=== PATIENT | male | born 1955 | race Caucasian/White ===

== ENCOUNTER 2019-12-17 06:28 | Day surgery (SDC) | payer OTHER ==
[2019-12-16 13:05] VITALS: BMI 25.9
[2019-12-17] MEDS ORDERED: LIDOCAINE HCL/PF 2% SDV 5ML VIAL ONE (09:25)
[2019-12-17] MEDS ORDERED: fentaNYL CITRATE 250 MCG/5 ML VIAL ONE (09:25)
[2019-12-17] MEDS ORDERED: DEXAMETHASONE SOD PHOSPHATE 4 MG/1 ML VIAL ONE (09:25)
[2019-12-17] MEDS ORDERED: PROPOFOL 20 ML ONE ×2 (09:25)
[2019-12-17] MEDS ORDERED: MIDAZOLAM HCL 2 MG/2 ML SINGLE DOSE VIAL ONE (09:26)
[2019-12-17] MEDS ORDERED: ceFAZolin SODIUM 1 GM VIAL ONE (09:55)
[2019-12-17] MEDS ORDERED: ceFAZolin 2 GRAM PREMIX BAG IVPB ONE (10:01)
[2019-12-17] MEDS ORDERED: MORPHINE SULFATE 2 MG/ML VIAL IVPUSH PRN (11:24)
[2019-12-17] MEDS ORDERED: oxyCODONE HCL 5 MG TABLET PO PRN (11:24)
[2019-12-17] MEDS ORDERED: ONDANSETRON 4 MG/2 ML VIAL IVPUSH PRN (11:24)
[2019-12-17] MEDS ORDERED: ACETAMINOPHEN 500 MG TABLET (FP) PO PRN (11:24)
[2019-12-17] MEDS ORDERED: HYDROmorphone HCl 2 MG/ML VIAL IM ONE (11:36)
[2019-12-17] MEDS ORDERED: TAMSULOSIN HCL 0.4 MG CAP PO ONE (11:36)
[2019-12-17] MEDS ORDERED: ACETAMINOPHEN 325 MG TABLET (FP) PO PRN (11:36)
[2019-12-17] MEDS ORDERED: ACETAMINOPHEN INJECTION 100 ML IVPB ONE (12:56)
--- NOTE | 2019-12-17 12:56 | HP ---
DATE OF ADMISSION: 12/17/2019 Patient is a 64-year-old male with a history of prostatism including frequency, urgency, hesitancy, terminal dribbling and feelings of incomplete bladder emptying. He did have an elevated PSA of 4.5. He underwent a transrectal ultrasound as well as a biopsy. This came back as benign. He was placed on Flomax and Proscar, but his prostatism continues. His postvoid residual is greater than 150 mL. He does have history of hypertension for which he takes hydrochlorothiazide and losartan. PHYSICAL EXAMINATION: General: A well-developed adult male. Abdomen: Soft. Genitourinary: Genitalia are atraumatic. Testes are normal in size and consistency. Rectal: His prostate is 3+, smooth, benign, not tender. Extremities: Full range of motion with no cyanosis, clubbing or edema. IMPRESSION AT PRESENT: Benign prostatic hypertrophy with severe prostatism syndromes. PLAN: Undergo a TURP. This was explained to the patient and he agrees. Jean Marie [id number]
[2019-12-17] MEDS: CEPHALEXIN MONOHYDRATE 500 MG CAPSULE (UD) PO SCH ×2 (13:53→21:20)
--- NOTE | 2019-12-17 15:36 | PN ---
Progress Note (short form) - Note Progress Note: UROLOGY NOTE. POD#1 S/P TURP/TUVP. +95FOLEY WITH CBI IS PATENT,URINE IS BLOOD TINGED, NO CLOTS, ABD. -SOFT, N/T, BS++. PLAN- DC CBI AND ATTACH CORREIA TO LEG BAG, WILL F/U PT. IN OFFICE ON SUNDAY
[2019-12-18] MEDS: CEPHALEXIN MONOHYDRATE 500 MG CAPSULE (UD) PO SCH ×2 (06:18→14:21)
--- NOTE | 2019-12-18 12:03 | OP ---
DATE OF OPERATION: 12/17/2019 PREOPERATIVE DIAGNOSIS: Benign prostatic hypertrophy, recurrent retention, large postvoid residual. POSTOPERATIVE DIAGNOSIS: Trilobar hypertrophy of the prostate, multiple bladder diverticulum. OPERATIVE PROCEDURE: Cystourethroscopy, transurethral resection and transurethral vaporization of prostate. ANESTHESIA: General. DESCRIPTION OF PROCEDURE: Under the above-stated anesthesia, the patient was prepped and draped in the usual sterile manner. He was placed in the dorsal lithotomy position. Cystoscopy revealed trilobar hypertrophy of the prostate. There was lateral lobe kissing. The bladder was entered; 250 mL of residual urine was drained. The bladder revealed multiple saccules and diverticula throughout. Bipolar resectoscope was inserted. The prostate was resected in the usual fashion. Hemostasis was secured with electrocoagulation. Prostate chips were evacuated with an [employer] evacuator. A bipolar button was then introduced and excess tissue was vaporized. Again, hemostasis was established with vapor cauterization. No active bleeding was noted. The bladder was emptied. A 24-Icelandic 3-way 30-mL Loera catheter was inserted. This was connected to continuous bladder irrigation. The patient tolerated the procedure. He returned to the recovery room in good condition. Jean Marie [id number]
[2019-12-18 14:48] VITALS: BP 119/70; PULSE 75; TEMP 97.4
--- NOTE | 2019-12-19 19:10 | PATH ---
Surgical Pathology Report Patient Name: ZELALEM PARK [facility]. Rec. #: [id number] /Age/Gender: 1955 (Age: 64) / F Account: [id number] Location: [facility] SURGICAL Taken: 12/17/2019 Received: 12/17/2019 Reported: 12/19/2019 Physicians: Gerry Levi M.D. Specimen(s) Received PROSTATE CHIPS Clinical History Hypertrophy of prostate Final Diagnosis PROSTATE CHIPS, TRANSURETHRAL RESECTION OF PROSTATE: BENIGN PROSTATIC TISSUE WITH FOCAL ACUTE AND PATCHY CHRONIC INFLAMMATION, ACINAR ATROPHY, CYSTIC CHANGES, GLANDULAR AND STROMAL HYPERPLASIA. 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 Comment: See concurrent cytology ([id number]). Electronically Signed Taryn Lopes M.D. Gross Description Received in formalin labeled "prostate chips," is a 28 g, 11.0 x 9.5 x 0.8 cm aggregate of altman, firm to rubbery portions of tissue, consistent with prostate chips. A sales solutions representative portion is submitted in 12 cassettes. /12/17/2019 saudi/12/17/2019
--- NOTE | 2019-12-19 19:11 | PATH ---
Cytology Non-Gynecological Report Patient Name: ZELALEM PARK [facility]. Rec. #: [id number] /Age/Gender: 1955 (Age: 64) / F Account: [id number] Location: LABORATORY Taken: 12/17/2019 Received: 12/17/2019 Reported: 12/19/2019 Physicians: Gerry Levi M.D. Specimen(s) Received URINE Clinical History BPH Final Diagnosis URINE FOR CYTOLOGY: SATISFACTORY FOR EVALUATION. NEGATIVE FOR HIGH GRADE UROTHELIAL CARCINOMA. RARE UROTHELIAL CELLS AND RARE SQUAMOUS EPITHELIAL CELLS PRESENT. RED BLOOD CELLS PRESENT. FEW UROTHELIAL FRAGMENTS PRESENT. Comment: Urothelial fragments are suggestive of prior instrumentation. Suggest clinical correlation. See concurrent biopsy ([id number]). Electronically Signed Taryn Lopes M.D. Gross Description Approximately 25 cc of bloody fluid received fresh. One cytofunnel prepared and Pap stained. One cellblock prepared.
== END 2019-12-18 15:18 | disposition home or self-care (01) ==
LOC: JASUSAT 06:28 → JASU-SURG 06:28 → J6S 13:35 → JASUSAT 12-18 15:18
PROVIDERS: ATTEND Urology
PROC: 0V508ZZ Destruction of Prostate, Via Natural or Artificial Opening Endoscopic (ICD-10-PCS; principal; 2019-12-17 09:00)
DX: N40.1 Benign prostatic hyperplasia with lower urinary tract symptoms (principal); R33.9 Retention of urine, unspecified; R39.14 Feeling of incomplete bladder emptying
CPT/HCPCS: 87086; 88108; 88305-TC; 94760; J0131

== ENCOUNTER 2020-05-11 06:37 | Day surgery (SDC) | payer OTHER ==
[2020-05-10 11:48] VITALS: BMI 26.6
[2020-05-11] MEDS ORDERED: ceFAZolin 2 GRAM PREMIX BAG IVPB ONE ×2 (15:22→15:25)
[2020-05-11] MEDS ORDERED: MIDAZOLAM HCL 2 MG/2 ML SINGLE DOSE VIAL ONE (15:23)
[2020-05-11 18:02] VITALS: BP 118/76; PULSE 98; TEMP 98
== END 2020-05-11 17:40 | disposition home or self-care (01) ==
LOC: JASU-SURG 06:37
PROVIDERS: ATTEND Urology
PROC: 0TF3XZZ Fragmentation in Right Kidney Pelvis, External Approach (ICD-10-PCS; principal; 2020-05-11 14:00)
DX: N20.0 Calculus of kidney (principal); E11.9 Type 2 diabetes mellitus without complications; D64.9 Anemia, unspecified; I10 Essential (primary) hypertension